=== PATIENT | male | born 1965 | race Two or more races ===

== ENCOUNTER 2020-11-12 19:37 | Emergency (ER) | payer OTHER ==
[~2020-11-12] VITALS: Ht 172.7 cm; Wt 108.4 kg
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
--- NOTE | 2020-11-12 19:41 | NUR ---
ER AT BEDSIDE TO EVAL PT WITH ORDERS RECEIEVD. WILL CARRY OUT ORDERS. EKG IN PROGRESS.
--- NOTE | 2020-11-12 19:45 | NUR ---
STARTED SL 18G TO LAC, BLOOD DRAWN AND SENT TO LAB.
--- NOTE | 2020-11-12 19:55 | NUR ---
[facility] called for Code STEMI. Facesheet and EKG faxed.
--- NOTE | 2020-11-12 19:55 | NUR ---
RADIOLOGY AT BEDSIDE FOR CXR
[2020-11-12] MEDS ORDERED: ASPIRIN 325 MG TABLET ONE (19:57)
[2020-11-12] MEDS ORDERED: HEPARIN SODIUM, PORCINE 5000 UNITS/1 ML VIAL ONE (19:57)
[2020-11-12] MEDS ORDERED: HEPARIN SODIUM, PORCINE 5000 UNITS/1 ML VIAL IV ONE (20:00)
[2020-11-12] MEDS ORDERED: ASPIRIN 325 MG TABLET PO ONE (20:00)
[2020-11-12] MEDS ORDERED: NITROGLYCERIN PACKET 1 GM PACKET TD ONE (20:00)
[2020-11-12] MEDS ORDERED: NITROGLYCERIN PACKET 1 GM PACKET ONE (20:01)
[2020-11-12 20:04] LABS: BASOPHILS # (AUTO) 0.1 /CMM (0.0-0.2); BASOPHILS % (AUTO) 0.9 % (0.0-2.0); EOSINOPHILS % (AUTO) 1.9 % (0.0-6.0); HEMATOCRIT 55 % (39-51); LYMPHOCYTES # (AUTO) 2.7 /CMM (0.8-4.8); LYMPHOCYTES % (AUTO) 38.8 % (20.0-44.0); MEAN CORPUSCULAR HGB CONC 35 g/dl (31.0-36.0); MEAN CORPUSCULAR VOLUME 89 fL (80-96); MONOCYTES # (AUTO) 0.5 /CMM (0.1-1.30); NEUTROPHILS # (AUTO) 3.6 /CMM (1.8-8.9); NEUTROPHILS % (AUTO) 51.4 % (43.0-81.0); PLATELET COUNT (AUTO) 160 /CMM (150-450); RED BLOOD CELL COUNT(AUTO) 6.16 MIL/uL (4.5-6.0)
--- NOTE | 2020-11-12 20:11 | NUR ---
Call back from [facility]. CCT en route. Accepted by Dr Schaeffer. Associate Professor Of Archaeology Dr Weber.
[2020-11-12 20:22] LABS: CALCIUM, SERUM 9.8 mg/dL (8.5-10.1); CARBON DIOXIDE 25 mmol/L (21-32); CHLORIDE 99 mmol/L (98-107); CREATININE 0.7 mg/dL (0.6-1.3); GLUCOSE 233 mg/dL (74-106); POTASSIUM 3.7 mmol/L (3.5-5.1); SODIUM SERUM 136 mmol/L (136-145); UREA NITROGEN, BLOOD 18 mg/dL (7-18)
[2020-11-12 20:27] LABS: ALANINE AMINOTRANSFERASE 101 U/L (12-78); ALBUMIN 4.3 g/dL (3.4-5.0); ALKALINE PHOSPHATASE 186 U/L (46-116); ASPARTATE AMINOTRANSFERASE 39 U/L (15-37); BILIRUBIN,DIRECT 0.2 mg/dL (0.0-0.2); BILIRUBIN,TOTAL 0.7 mg/dL (0.2-1.0); TOTAL PROTEIN, SERUM 8.1 g/dL (6.4-8.2)
--- NOTE | 2020-11-12 20:38 | NUR ---
REPORT GIVEN TO ANDRE WITH [facility] FOR TRANSPORTATION [facility]. PT TRANSFERRED TO [facility] IN STABLE CONDITION
[2020-11-12 20:40] VITALS: BP 176/108
--- NOTE | 2020-11-12 20:40 | NUR ---
ATTEMPTED TO GIVE REPORT TO [facility] ([phone]), WILL CALL BACK
--- NOTE | 2020-11-12 20:45 | NUR ---
REPORT GIVEN TO ALIREZA GODWIN FROM [facility] FOR [facility]
[2020-11-12 20:54] LABS: LYMPHOCYTES % (MANUAL) 50 % (16-48); MONOCYTES % (MANUAL) 3 % (0-11.0); NEUTROPHILS % (MANUAL) 47 (42-76)
== END 2020-11-12 20:47 | disposition short-term general hospital (02) ==
LOC: ER 19:39
DX: I21.19 ST elevation (STEMI) myocardial infarction involving other coronary artery of inferior wall (principal); I10 Essential (primary) hypertension; E11.9 Type 2 diabetes mellitus without complications; F17.200 Nicotine dependence, unspecified, uncomplicated; Z20.822 Contact with and (suspected) exposure to COVID-19
CPT/HCPCS: 36415; 71045; 80048; 80076; 84484; 85007; 85025; 87426; 93005; 96374; 99291; C9803; J1644